=== PATIENT | male | born 1980 | race Caucasian/White ===

== ENCOUNTER 2017-03-01 19:05 | Emergency (ER) | payer BC, OTHER ==
[2017-03-01] MEDS ORDERED: Fluorescein Opthalmic Strip ONE (19:11)
[2017-03-01] MEDS ORDERED: Tetracaine HCl 0.5% Ophth Soln 2 ML Bottle ONE (19:12)
[2017-03-01] MEDS ORDERED: Tobramycin Sulfate 0.3% Ophth Susp 5 ml Bottle ONE (19:19)
== END 2017-03-01 19:33 | disposition home or self-care (01) ==
LOC: BURERS 19:05
DX: T15.01XA Foreign body in cornea, right eye, initial encounter (principal)
CPT/HCPCS: 65220